=== PATIENT | male | born 1940 | race Caucasian/White ===

== ENCOUNTER 2018-03-23 15:58 | Emergency (ER) | payer BC, MEDICARE ==
[2018-03-23] MEDS ORDERED: Lidocaine 1% (PF) 30 ML VIAL ONE (16:57)
[2018-03-23] MEDS ORDERED: Adacel (T-DAP) 0.5 ML VIAL ONE (17:04)
[2018-03-23 17:16] LABS: ALT (SGPT) 10 U/L (8-55); AST (SGOT) 16 U/L (5-34); Alkaline Phosphatase 63 U/L (40-150); Anion Gap 15 mmol/L (10-20); BUN (Urea Nitrogen) 15 mg/dL (8.4-25.7); Bilirubin, Total 0.5 mg/dL (0.2-1.2); CK (CPK) 126 U/L (30-200); Calc. Creatinine Clearance 0 mL/min (70-130); Calcium 9.5 mg/dL (7.8-10.44); Carbon Dioxide 22 mmol/L (23-31); Chloride 108 mmol/L (98-107); Estimated GFR-MDRD 71; Globulin 2.9 g/dL (2.4-3.5); Glucose 127 mg/dL (83-110); Protein, Total 6.9 g/dL (5.8-8.1); Sodium 141 mmol/L (136-145)
[2018-03-23 17:18] LABS: CKMB 2.6 ng/mL (0-6.6); Troponin I 0.017 ng/mL (< 0.028)
--- NOTE | 2018-03-23 17:26 | RAD ---
PORTABLE CHEST: HISTORY: Atrial fibrillation. FINDINGS: The heart size is slightly enlarged. The aorta is tortuous with atherosclerotic change. The lungs a re clear of infiltrates. There are no signs of failure. IMPRESSION: Mild cardiomegaly. POS: [facility]
[2018-03-23 17:29] LABS: Differential Comment SLIDE CONSISTENT WITH CLL; Eosinophils 2 % (0-10); Hemoglobin 13.7 g/dL (14.0-18.0); Lymphocytes 89 % (21-51); MDiff Complete? YES; Mean Corpuscular HGB CONC 32.8 g/dL (32.0-36.0); Mean Corpuscular Hemoglobin 36.9 pg (27.0-31.0); Mean Platelet Volume 6.8 fL (7.4-10.4); Monocytes 2 % (0-10); Neutrophil 6 % (42-75); PLT Morphology Comment Appears Adequate; Platelet Count 164 thou/uL (130-400); RBC Distribution Width 13.2 % (11.5-14.5); Red Blood Cell (RBC) Count 3.71 mill/uL (4.70-6.10)
[2018-03-23 17:31] LABS: Macrocytosis SLIGHT = 6-15 cells (100X) (0-5/hpf); White Blood Cell (WBC) Count 20.6 thou/uL (4.8-10.8)
[2018-03-23] MEDS ORDERED: Bacitracin Zinc 1 Packet ONE (17:32)
== END 2018-03-23 18:35 | disposition short-term general hospital (02) ==
LOC: NAV ERS 15:58
DX: S61.412A Laceration without foreign body of left hand, initial encounter (principal); S01.81XA Laceration without foreign body of other part of head, initial encounter; I48.91 Unspecified atrial fibrillation; E78.1 Pure hyperglyceridemia; M19.90 Unspecified osteoarthritis, unspecified site; F17.210 Nicotine dependence, cigarettes, uncomplicated; K21.9 Gastro-esophageal reflux disease without esophagitis; Z79.899 Other long term (current) drug therapy; W26.8XXA Contact with other sharp object(s), not elsewhere classified, initial encounter
CPT/HCPCS: 12002; 71045; 80053; 82550; 82553; 83880; 84484; 85025; 90471; 90715; 93005; 96365; 96376; J2001

== ENCOUNTER 2018-04-02 13:21 | Emergency (ER) | payer SELFPAY | END 2018-04-02 14:05 | disposition home or self-care (01) | LOC: NAV ERS 13:21 | DX: S61.412D Laceration without foreign body of left hand, subsequent encounter (principal); K21.9 Gastro-esophageal reflux disease without esophagitis; E78.2 Mixed hyperlipidemia; F17.210 Nicotine dependence, cigarettes, uncomplicated ==

== ENCOUNTER 2020-06-18 10:26 | Emergency (ER) | payer MEDICARE ==
[~2020-06-18 10:26] MED LIST: Iopamidol 370 76% 100 ML VIAL ONE
[2020-06-18] MEDS ORDERED: Ondansetron PF 4 MG/2 ML Vial ONE ×2 (11:00→12:29)
[2020-06-18] MEDS ORDERED: Sodium Chloride 0.9% 1,000 ML ONE (11:00)
[2020-06-18 11:36] LABS: ALT (SGPT) 9 U/L (8-55); AST (SGOT) 13 U/L (5-34); Albumin 3.2 g/dL (3.4-4.8); Alkaline Phosphatase 127 U/L (40-110); Anion Gap 20 mmol/L (10-20); BUN (Urea Nitrogen) 25 mg/dL (8.4-25.7); Bilirubin, Total 0.6 mg/dL (0.2-1.2); CK (CPK) 18 U/L (30-200); Calc. Creatinine Clearance 0 mL/min (70-130); Calcium 8.4 mg/dL (7.8-10.44); Chloride 102 mmol/L (98-107); Globulin 3.3 g/dL (2.4-3.5); Glucose 88 mg/dL (83-110); Hemoglobin 10.3 g/dL (14.0-18.0); MDiff Complete? YES; Mean Corpuscular HGB CONC 34.1 g/dL (32.0-36.0); Mean Corpuscular Hemoglobin 36.7 pg (27.0-31.0); Platelet Count 281 thou/uL (130-400); Potassium 4.3 mmol/L (3.5-5.1); Protein, Total 6.5 g/dL (5.8-8.1); RBC Distribution Width 13.4 % (11.5-14.5); Sodium 138 mmol/L (136-145)
[2020-06-18 11:38] LABS: Carbon Dioxide 20 mmol/L (23-31)
[2020-06-18 11:40] LABS: White Blood Cell (WBC) Count 23.9 thou/uL (4.8-10.8)
[2020-06-18 11:41] LABS: Anisocytosis SLIGHT = 6-15 cells (100X) (0-5/hpf); Band 1 % (5-11); Lymphocytes 86 % (21-51); Macrocytosis SLIGHT = 6-15 cells (100X) (0-5/hpf); Monocytes 3 % (0-10); Neutrophil 10 % (42-75); Platelet Morphology Comment Appears Adequate
--- NOTE | 2020-06-18 11:55 | RAD ---
Chest one view Abdomen 2 views HISTORY: Chest and abdomen pain. Nausea vomiting. COMPARISON: 02/08/2020. Findings cardiac silhouette is magnified by projection. Pulmonary vasculature are unremarkable. Mediastinum is midline with aortic calcification. No confluent airspace consolidation or evidence of subdiaphragmatic gas. Gas and stool apparent within the colon and rectum. Mildly distended gas-filled loops of small bowel within the upper abdomen. No differential air-fluid levels or evidenc e of free intraperitoneal gas. Metallic clips over the gallbladder fossa. Prominent degenerative changes lumbar spine. Phleboliths project over the pelvis. IMPRESSION : Nonspecific bowel gas pattern. Gas distended loops over the left upper quadrant are in a pattern sugg esting the possibility of adjacent inflammation. If inflammatory-type symptoms are referable to the left abdomen (such as pancreatitis), consider CT evaluation
[2020-06-18 12:06] LABS: Bilirubin Small (Negative); Blood, Urine Negative (Negative); Clarity Clear (Clear); Glucose, Urine (Dipstick) Negative (Negative); Ketone, Urine Negative (Negative); Leukocyte Negative (Negative); Nitrite Negative (Negative); Protein, Urine (Dipstick) 30 mg/dL (Neg-Trace); pH, Urine 5.5 (5.0-9.0)
[2020-06-18 12:15] LABS: Specific Gravity, Urine 1.027 (1.002-1.036)
[2020-06-18 12:16] LABS: Bacteria/HPF 1+ HPF (None Seen); RBC/HPF 0-3 HPF (0-3)
[2020-06-18] MEDS ORDERED: Piperacillin/Tazobactam 3.375 GM VIAL ONE (12:34)
[2020-06-18] MEDS ORDERED: Sodium Chloride 0.9% 100 ML ONE (12:34)
--- NOTE | 2020-06-18 13:08 | CT ---
CT abdomen and pelvis with IV contrast HISTORY: Nausea vomiting. Leukocytosis. COMPARISON: 02/08/2020. FINDINGS: Mild parenchymal scarring at the lung bases. No pleural fluid evident. The superiormost patricia ge shows a lobular mass/lymph node immediately to the right of the lower thoracic aorta. It is 2.4 cm x 1.9 cm greatest diameters on the axial images. Additional slightly enlarged lymph nodes are pres ent throughout the abdomen, measuring up to 1.2 cm at the lower esophageal level, 1.6 cm at the peripancreatic level, and 1.6 cm along the left iliac level. Nodularity of the left adrenal gland lateral limb is unchanged in appearance. Gallbladder surgically absent. Diverticula arise from the colon without adjacent inflammation. No evidence of bowel obstruction. Fusiform distention of the lower abdominal aorta now measures up to 3.2 cm. There is calcification th roughout the arterial structures. Subtle stranding throughout the right retroperitoneal fat, centered about the right kidney and disten ded right ureter. The ureter is mildly dilated to the level of the ureterovesicular junction, where a 0.2 cm hyperdense focus is present. It was not present at this location on the prior exam. Old healed fracture of the right side of the pubic symphysis. Prominent degenerative changes throughout the lumbar spine. Gas within a posterior disc herniation at the L3-4 level was present on the prior CT exam. IMPRESSION : Partial obstruction at a 0.2 cm right UVJ calculus. Interval enlargement of lower mediastinal and abdominal lymph nodes. Diverticulosis. No evidence of diverticulitis. Slight enlargement of the fusiform lower abdominal aortic aneurysm 3.2 cm. 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
== END 2020-06-18 15:10 | disposition short-term general hospital (02) ==
LOC: NAV ERS 10:26
DX: A41.9 Sepsis, unspecified organism (principal); N20.1 Calculus of ureter; J44.9 Chronic obstructive pulmonary disease, unspecified; I10 Essential (primary) hypertension; K21.9 Gastro-esophageal reflux disease without esophagitis; E78.5 Hyperlipidemia, unspecified; E78.00 Pure hypercholesterolemia, unspecified; F17.210 Nicotine dependence, cigarettes, uncomplicated; Z79.899 Other long term (current) drug therapy
CPT/HCPCS: 36415; 74022; 74177; 80053; 81003; 81015; 82550; 83605; 84484; 85025; 93005; 96361; 96365; 96375; 96376; J2405; J2543; J3490; J7050; Q9967